=== PATIENT | female | born 1980 | race Native Hawaiian/Other Pacific Islander ===

== ENCOUNTER 2019-10-13 20:46 | Emergency (ER) | payer OTHER, SELFPAY ==
[2019-10-13 20:46] VITALS: BP 176/98; PULSE 79; RESP 16; TEMP 37; O2SAT 100; BMI 22.3
--- NOTE | 2019-10-13 20:59 | DI.RAD.S_ITS ---
PROCEDURE: XR CHEST 1V INDICATIONS: chest pain TECHNIQUE: One view of the chest was acquired. COMPARISON: None. FINDINGS: Surgical changes and devices: None. Lungs and pleura: Lungs are clear. Question lead over right chest versus right midlung field pulmonary nodule. No pleural effusions or pneumothorax. Mediastinum: Mediastinal contours appear normal. Heart size is normal. Bones and chest wall: No suspicious bony lesions. Overlying soft tissues appear unremarkable. IMPRESSION: 1. No acute pulmonary infiltrates. 2. Question lead over right chest versus right pulmonary nodule. Recommend repeat chest films after removal of possible lead Comment: Findings were discussed with Dr. Noonan at the time of study dictation. Dictated by: Julien Chirinos M.D. on 10/13/2019 at 22:03 Approved by: Julien Chirinos M.D. on 10/13/2019 at 22:06
[2019-10-13 21:23] VITALS: BP 154/83; PULSE 84; RESP 17; O2SAT 95
[2019-10-13 21:26] LABS: Prothrombin Time 11.6 SECONDS (10.1-12.7)
[2019-10-13 21:27] LABS: Add Manual Diff / Slide Review NO; Basophils Absolute Auto 100 /uL (0-100); Basophils Percent Auto 1.1 % (0-2); Eosinophils Absolute Auto 100 /uL (0-450); Eosinophils Percent Auto 2.1 % (2-4); Hemoglobin 11.6 g/dL (12.0-16.0); Lymphocytes Absolute Auto 2300 /uL (1100-4500); Lymphocytes Percent Auto 39.5 % (25-40); Mean Corpuscular HGB Conc 33.2 % (30-36); Mean Corpuscular Hemoglobin 29.7 PG (26-34); Mean Corpuscular Volume 89.6 fL (80-100); Monocytes Absolute Auto 500 /uL (0-900); Monocytes Percent Auto 8.5 % (3-14); Neutrophils Absolute Auto 2800 /uL (1500-7000); Neutrophils Percent Auto 48.8 % (50-75); Platelet Count 227 X10^3/uL (150-400); Red Blood Cell Count 3.91 X10^6/uL (4.0-5.2); Red Cell Distribution Width 13.6 % (11.6-14.8); White Blood Cell Count 5.8 X10^3/uL (4.5-11.0)
[2019-10-13 21:29] LABS: Alanine Aminotransferase 23 IU/L (<35); Albumin 4.6 g/dL (3.5-5.0); Albumin Globulin Ratio 1.2 (1.0-2.8); Alkaline Phosphatase 70 U/L (38-126); Aspartate Aminotransferase 19 IU/L (14-36); BUN Creatinine Ratio 21.4 (6-22); Bilirubin Total 0.3 mg/dL (0.2-1.3); Blood Urea Nitrogen 15 mg/dL (7-17); Calcium 9.5 mg/dL (8.4-10.2); Carbon Dioxide 28 mmol/L (22-32); Chloride 101 mmol/L (98-107); Creatine Kinase 69 U/L (30-135); Estimated Glomerular Filt Rate > 60.0 mL/min (>60); Globulin 3.8 g/dL (1.7-4.1); Glucose 98 mg/dL (70-100); HEMOLYSIS < 15 (0-50); Lipase 118 U/L (23-300); PTT Partial Thromboplastin Tim 33 SECONDS (26.4-36.2); Potassium 3.6 mmol/L (3.4-5.1); Sodium 138 mmol/L (137-145); Total Protein 8.4 g/dL (6.3-8.2)
[2019-10-13 21:40] LABS: Troponin I < 0.012 ng/mL (0.01-0.034)
--- NOTE | 2019-10-13 22:04 | ED.CHESTPAIN ---
HPI - Chest Pain General Chief Complaint: Chest Pain Stated Complaint: upper abd pain, back pain, headache Time Seen by Provider: 10/13/19 22:02 Source: patient Mode of arrival: Ambulatory Limitations: no limitations History of Present Illness HPI narrative: This is a 38-year-old female comes to the emergency department with complaint of neck pain into her lower jaw and throat, pain in her back particularly the left thoracic side, as well as epigastric pain. Patient states that her symptoms have been and off for at least a month except for the pain in her neck and when she swallows started last night. Her back is been bothering her for about 4 days. She states she has had some chills on and off. She has had some tingling in her hands and feet intermittently for the past month. Patient has had a little bit of sore throat. She has also had some epigastric pain. She denies any chest pain or pressure, nausea, no vomiting no issues with bowel movements or urination. She denies any swelling in her extremities. She does not recall any recent trauma or injury. She has also had mild headache. She did have a massage on Friday night which seemed to possibly cause her back discomfort. She is taking Tylenol which has been helpful. Patient takes omeprazole but not every single day, she has had x2. She gets hives with aspirin and ibuprofen to. No tobacco, no alcohol, no illicit. No cardiac, embolic or pulmonary history in her immediate family. Related Data Previous Rx's Medication Instructions Recorded omeprazole 40 mg PO DAILY #30 cap 10/14/19 Allergies Allergy/AdvReac Type Severity Reaction Status Date / Time aspirin Allergy Severe ITCHING Verified 10/13/19 20:58 ibuprofen Allergy Severe Hives Verified 10/13/19 20:58 Review of Systems Review of Systems ROS Unobtainable: All systems reviewed & are unremarkable except as noted in HPI and below Patient History Medical History (Updated 10/14/19 @ 00:35 by Aida Noonan DO) Delivery with history of (Acute) Ulcer (Acute) Social History Smoking Status: Never smoker Smoking Status: Never smoker Substance Use Type: does not use Exam Narrative Exam Narrative: GENERAL: Alert and oriented x three, thin, well-appearing female in mild distress HEENT: Head normocephalic, atraumatic, EOMI, pupils reactive, face symmetric, moist mucous membranes NECK: Supple, full range of motion CARDIOVASCULAR: Regular rate and rhythm without murmurs, rubs or gallops. Chest pain is not reproducible with palpation. RESPIRATORY: Breath sounds equal bilaterally, no wheezes rales or rhonchi. ABDOMEN: Soft, moderate epigastric and right upper quadrant tenderness. Normoactive bowel sounds all 4 quadrants. No guarding or rebound, rigidity, no mass, no HSM noted. Nondistended. : No CVA tenderness BACK: No cervical, thoracic or lumbar vertebral point tenderness. Patient has tissue tightness of the left mid and upper thoracic as well as left trapezius and latissimus dorsi muscle. Patient has normal range of motion. Patient's gait is normal. Muscle strength is 5/5 in upper extremities, 2+ radial pulses bilaterally with normal sensation bilaterally. EXTREMITIES: Normal range of motion, no clubbing or edema. Neurovascularly intact NEUROLOGICAL: Cranial nerves II through XII grossly intact. Moving all extremities SKIN: Warm, dry, no petechiae, no rashes or lesions. Initial Vital Signs Initial Vital Signs: Vital Signs Temperature 98.6 F 10/13/19 20:46 Pulse Rate 79 10/13/19 20:46 Respiratory Rate 16 10/13/19 20:46 Blood Pressure 176/98 H 10/13/19 20:46 Pulse Oximetry 100 10/13/19 20:46 Scores HEART Score Heart Score history: Slightly Suspicious Heart Score EKG: Normal Heart Score Age: < 45 years old Heart Score risk factors: No known risk factors Heart Score troponin: < or = to normal limit Heart Score Total: 0 PERC Score Age greater than or equal to 50 years: No Heart rate greater than or equal to 100 bpm: No Room Air O2 Sat less than 95%: No Unilateral leg swelling: No Recent trauma or surgery: No Hemoptysis: No Prior PE or DVT: No Hormone Use: No Total PERC Score: 0 Course Orders Ordered: ED Orders 10/13/19 20:58 EKG-12 Lead Stat 10/13/19 20:59 XR chest 1V Stat 10/13/19 21:10 Complete Blood Count AUTO DIFF Stat Comprehensive Metabolic Panel Stat Lipase Stat Partial Thromboplastin Time Stat Prothrombin Time INR Stat Troponin & CK Cardiac Panel Stat 10/13/19 22:57 US abdomen limited Stat 10/13/19 23:18 Troponin & CK Cardiac Panel Stat 10/13/19 23:20 EKG-12 Lead Routine Discontinued Medications Al Hydrox/Mg Hydrox/Simethicone 20 ml/ Lidocaine HCl 15 ml 0 ml PO NOW ONE Stop: 10/14/19 00:31 Last Admin: 10/14/19 00:35 Dose: 45 ml Documented by: FANNY Vital Signs Vital signs: Vital Signs - 8 hr 10/13/19 20:46 10/13/19 21:23 10/14/19 00:21 Temperature 98.6 F Pulse Rate 79 84 75 Respiratory Rate 16 17 18 Blood Pressure 176/98 H Blood Pressure [Left Arm] 154/83 H 124/93 H Pulse Oximetry 100 95 98 MDM - Chest Pain Lab Data Attestation: I reviewed the patient's lab results. Result diagrams: 10/13/19 21:10 10/13/19 21:10 Labs: Lab Results 10/13/19 10/13/19 10/13/19 Range/Units 21:10 21:10 21:10 WBC 5.8 (4.5-11.0) X10^3/uL RBC 3.91 L (4.0-5.2) X10^6/uL Hgb 11.6 L (12.0-16.0) g/dL Hct 35.0 L (36-46) % MCV 89.6 (80-100) fL MCH 29.7 (26-34) PG MCHC 33.2 (30-36) % RDW 13.6 (11.6-14.8) % Plt Count 227 (150-400) X10^3/uL Neut % (Auto) 48.8 L (50-75) % Lymph % (Auto) 39.5 (25-40) % [place] % (Auto) 8.5 (3-14) % Eos % (Auto) 2.1 (2-4) % Baso % (Auto) 1.1 (0-2) % Neut # (Auto) 2800 (6632-7038) /uL Lymph # (Auto) 2300 (1835-4960) /uL [place] # (Auto) 500 (0-900) /uL Eos # (Auto) 100 (0-450) /uL Baso # (Auto) 100 (0-100) /uL PT 11.6 (10.1-12.7) SECONDS INR 1.0 (0.9-1.3) APTT 33 (26.4-36.2) SECONDS Sodium 138 (137-145) mmol/L Potassium 3.6 (3.4-5.1) mmol/L Chloride 101 (98-107) mmol/L Carbon Dioxide 28 (22-32) mmol/L BUN 15 (7-17) mg/dL Creatinine 0.70 (0.52-1.04) mg/dL Estimated GFR > 60.0 (>60) mL/min BUN/Creatinine Ratio 21.4 (6-22) Glucose 98 (70-100) mg/dL Calcium 9.5 (8.4-10.2) mg/dL Total Bilirubin 0.3 (0.2-1.3) mg/dL AST 19 (14-36) IU/L ALT 23 (<35) IU/L Alkaline Phosphatase 70 (38-126) U/L Total Creatine Kinase 69 (30-135) U/L CK-MB (CK-2) TNP CK-MB (CK-2) Rel Index TNP Troponin I < 0.012 (0.01-0.034) ng/mL Total Protein 8.4 H (6.3-8.2) g/dL Albumin 4.6 (3.5-5.0) g/dL Globulin 3.8 (1.7-4.1) g/dL Albumin/Globulin Ratio 1.2 (1.0-2.8) Lipase 118 (23-300) U/L 10/13/19 Range/Units 23:18 WBC (4.5-11.0) X10^3/uL RBC (4.0-5.2) X10^6/uL Hgb (12.0-16.0) g/dL Hct (36-46) % MCV (80-100) fL MCH (26-34) PG MCHC (30-36) % RDW (11.6-14.8) % Plt Count (150-400) X10^3/uL Neut % (Auto) (50-75) % Lymph % (Auto) (25-40) % [place] % (Auto) (3-14) % Eos % (Auto) (2-4) % Baso % (Auto) (0-2) % Neut # (Auto) (3881-1459) /uL Lymph # (Auto) (3995-2092) /uL [place] # (Auto) (0-900) /uL Eos # (Auto) (0-450) /uL Baso # (Auto) (0-100) /uL PT (10.1-12.7) SECONDS INR (0.9-1.3) APTT (26.4-36.2) SECONDS Sodium (137-145) mmol/L Potassium (3.4-5.1) mmol/L Chloride (98-107) mmol/L Carbon Dioxide (22-32) mmol/L BUN (7-17) mg/dL Creatinine (0.52-1.04) mg/dL Estimated GFR (>60) mL/min BUN/Creatinine Ratio (6-22) Glucose (70-100) mg/dL Calcium (8.4-10.2) mg/dL Total Bilirubin (0.2-1.3) mg/dL AST (14-36) IU/L ALT (<35) IU/L Alkaline Phosphatase (38-126) U/L Total Creatine Kinase 64 (30-135) U/L CK-MB (CK-2) TNP CK-MB (CK-2) Rel Index TNP Troponin I < 0.012 (0.01-0.034) ng/mL Total Protein (6.3-8.2) g/dL Albumin (3.5-5.0) g/dL Globulin (1.7-4.1) g/dL Albumin/Globulin Ratio (1.0-2.8) Lipase (23-300) U/L Imaging Data Chest x-ray: Radiologist's Impression: [address] [id number] XRay Report Signed Patient: June Wright PMR#: [id number] : 1980Acct:[id number] Age/Sex: 38 / FDate of Service: 10/13/19 Loc: ED Accession Number: [id number] Procedure: XR chest 1V Ordering Provider: Aida Noonan D.O. PROCEDURE: XR CHEST 1V INDICATIONS: chest pain TECHNIQUE: One view of the chest was acquired. COMPARISON: None. FINDINGS: Surgical changes and devices: None. Lungs and pleura: Lungs are clear. Question lead over right chest versus right midlung field pulmonary nodule. No pleural effusions or pneumothorax. Mediastinum: Mediastinal contours appear normal. Heart size is normal. Bones and chest wall: No suspicious bony lesions. Overlying soft tissues appear unremarkable. IMPRESSION: 1. No acute pulmonary infiltrates. 2. Question lead over right chest versus right pulmonary nodule. Recommend repeat chest films after removal of possible lead Comment: Findings were discussed with Dr. Noonan at the time of study dictation. Dictated by: Julien Chirinos M.D. on 10/13/2019 at 22:03 Approved by: Julien Chirinos M.D. on 10/13/2019 at 22:06 RUQ US: Radiologist's Impression: Gallbladder remarkable without stones or wall thickening. No ductal dilation, common duct is 5.8 mm, liver margin is without focal abnormalities, pancreas is unremarkable. No significant abnormalities. ECG Data Attestation: I personally reviewed and interpreted this ECG as follows: Prior ECG tracings: not available for review Interpretation: Sinus rhythm, rate of 70, pr of 145, qrs of 81, qtc of 407. No ST elevation noted. No priors available for comparison. MDM Narrative Medical decision making narrative: Patient comes in with constellation of symptoms, patient is moderately tender in the epigastric region and RUQ. Labs show mild anemia, elevated white count, LFTs and abdominal enzymes are negative with normal electrolytes. Chest x-ray shows a possible nodule. On exam patient does not have a bleed in that place. Discussed with patient would recommend she have repeat imaging to evaluate for pulmonary nodule although I do not think this is likely the cause of her symptoms today. Right upper quadrant ultrasound does not show any major abnormalities. She does have a history of reflux and possibly ulcer she does not take her omeprazole daily and we discussed increasing this to daily. She does have a lot of muscle tightness on physical exam is suspect her back pain is more musculoskeletal in nature. Troponin, and EKG do not show acute changes. Heart score is low risk. Perc is 0. Discussed with patient she has a an appointment this morning at 9:40 a.m. and I asked that she keep it discussed with her physician. Discharge Plan Departure Patient Disposition: Home Clinical Impression: Atypical chest pain, Back pain, thoracic Discharge Date/Time: 01/30/20 00:48 Activity Restrictions/Additional Instructions: Follow up with primary care in the next week for recheck. You have mild anemia with a hemoglobin of 11. Your other labs do not show major changes. US does not show major changes. CXR shows a possible nodule on the right side, it's unclear if this may be a shadow and repeat chest xray imaging is recommended. Let your physician know and they can order this. Continue taking your omeprazole daily. You may take Tylenol up to 1000 mg every 8 hours as needed for pain. Return to the ER for fevers greater 100.4 F, passing out, lightheadedness, new chest pain, shortness of breath, persistent vomiting, black or bloody stools, new numbness, weakness or inability use your extremities, difficulty with finish saw operator or other new or concerning symptoms. Prescriptions: New omeprazole 40 mg capsule,delayed release(DR/EC) 40 mg PO DAILY Qty: 30 RF: 0
--- NOTE | 2019-10-13 22:57 | DI.US.S_ITS ---
PROCEDURE: US ABDOMEN LIMITED INDICATIONS: EPIGASTRIC PAIN TECHNIQUE: Real-time scanning was performed of the abdominal and retroperitoneal organs, with image documentation. COMPARISON: None. FINDINGS: Liver: Liver is normal in size and homogeneous in echotexture. Gallbladder: Gallbladder is normal in sonographic appearance without gallstones, gallbladder wall thickening, pericholecystic fluid, or abnormal sonographic Ang's. Biliary ducts: Intrahepatic bile ducts are non-dilated. Extrahepatic bile duct caliber measures 6 mm. Normal is 6-7 mm or less in diameter, or 10 mm or less post-cholecystectomy. Pancreas: Visualized portions of the pancreas are sonographically normal. Miscellaneous: No free abdominal fluid. IMPRESSION: Normal sonographic evaluation of the liver, gallbladder, biliary ducts, and pancreas. No significant discrepancy with the housing case manager radiology preliminary report. Dictated by: Alejandro Tipton M.D. on 10/14/2019 at 7:44 Approved by: Alejandro Tipton M.D. on 10/14/2019 at 7:46
[2019-10-13 23:40] LABS: Creatine Kinase 64 U/L (30-135)
[2019-10-13 23:53] LABS: Troponin I < 0.012 ng/mL (0.01-0.034)
[2019-10-14 00:21] VITALS: BP 124/93; PULSE 75; RESP 18; O2SAT 98
[2019-10-14] MEDS: MAG HYDROX/ALUMINUM/SIMETH SUS 20 ML, LIDOCAINE VISCOUS 2% 15 ML PO (00:35)
== END 2019-10-14 00:48 | disposition home or self-care (01) ==
PROVIDERS: Emergency Provider Emergency Medicine
DX: R07.89 Other chest pain (principal); M54.6 Pain in thoracic spine; R10.13 Epigastric pain
CPT/HCPCS: 36415; 71045; 76705; 80053; 82550; 83690; 84484; 85025; 85610; 85730; 93005; 99285

== ENCOUNTER 2020-12-11 02:46 | Emergency (ER) | payer OTHER, SELFPAY ==
[2020-12-11 02:57] VITALS: BP 153/93; PULSE 77; RESP 18; TEMP 36.4; O2SAT 98; BMI 22.6
--- NOTE | 2020-12-11 02:57 | DI.US.S_ITS ---
PROCEDURE: US ABDOMEN LIMITED INDICATIONS: EPIGASTRIC PAIN TECHNIQUE: Real-time focused scanning was performed of the abdomen, with image documentation. COMPARISON: None. FINDINGS: Liver is normal in size and echotexture. Gallbladder is sonographically normal. No gallstones. No gallbladder wall thickening with wall measuring 1.0 millimeters. No pericholecystic fluid. No sonographic Ang sign. Biliary tree is nondilated. Common bile duct measures 4.8 millimeters. IMPRESSION: No sonographic evidence of cholelithiasis or cholecystitis. If there is continued clinical concern for cholecystitis, a nuclear medicine HIDA scan should be considered for further evaluation. Dictated by: Estelle Rubio MD, PhD on 12/11/2020 at 8:16 Approved by: Estelle Rubio MD, PhD on 12/11/2020 at 8:17
--- NOTE | 2020-12-11 03:00 | ED.ABDPAIN ---
HPI - Abdominal Pain General Chief Complaint: Abdominal Pain Stated Complaint: feels gall bladder pain around to back Time Seen by Provider: 12/11/20 02:48 Source: patient Mode of arrival: Ambulatory Limitations: no limitations History of Present Illness HPI narrative: 40-year-old female nonsmoker with history of episodes of epigastric pain presents with a family member in the chief complaint of a severe epigastric pain with radiation to her back that started yesterday afternoon after eating fatty foods. She admits to nausea but denies any vomiting. She states her pain is worse with motion and palpation but denies any other obvious provocation or palliation. She states it is stabbing me and sharp in nature and 7/10 in intensity. She has had no fever chills nor change in bowel habits or jaundice. She denies any known history of gallbladder disease and does not drink alcohol. MD complaint: abdominal pain Onset (ago): hour(s) Pain Consistency: constant Location: epigastric Severity: severe Severity scale (1-10): 7 Quality: cramping, stabbing and sharp Radiation: back Relieving factors: rest Exacerbating factors: eating and movement Associated symptoms: nausea Related Data Previous Rx's Medication Instructions Recorded omeprazole 40 mg PO DAILY #30 cap 10/14/19 ondansetron 4 mg PO TID-QID PRN #10 tab 12/11/20 pantoprazole [Protonix] 40 mg PO DAILY #30 tab 12/11/20 Allergies Allergy/AdvReac Type Severity Reaction Status Date / Time aspirin Allergy Severe ITCHING Verified 10/13/19 20:58 ibuprofen Allergy Severe Hives Verified 10/13/19 20:58 Review of Systems Constitutional Constitutional: Denies chills, Denies fatigue, Denies fever(s), Denies frequent falls, Denies lethargy and Denies weakness Eyes Eyes: Denies change in vision, Denies eye discharge, Denies irritation and Denies loss of vision ENT Ears, Nose, Mouth, and Throat: Denies change in voice, Denies dizziness, Denies neck pain, Denies sore throat and Denies throat swelling Cardiovascular Cardiovascular: Denies chest pain, Denies irregular heart rhythm, Denies lightheadedness, Denies palpitations, Denies dyspnea, Denies dyspnea on exertion and Denies orthopnea Respiratory Respiratory: Denies cough, Denies dyspnea, Denies dyspnea on exertion and Denies wheezing Gastrointestinal Gastrointestinal: Reports abdominal pain, Denies change in bowel habits, Denies diarrhea, Reports nausea and Denies vomiting Musculoskeletal Musculoskeletal: Denies neck pain and Denies numbness Integumentary/Breasts Skin/Breast: Denies pruritus, Denies erythema, Denies rash and Denies wounds Neurologic Neurologic: Denies behavioral changes, Denies confusion, Denies dizziness, Denies frequent falls, Denies loss of vision, Denies numbness and Denies weakness Psychiatric Psychiatric: Denies anxiety, Denies behavioral changes, Denies confusion, Denies depression, Denies homicidal ideation and Denies suicidal ideation Endocrine Endocrine: Denies fatigue, Denies flushing and Denies palpitations Hematologic/Lymphatic Hematologic/Lymphatic: Denies easy bruising Allergic/Immunologic Allergic/Immunologic: Denies urticaria, Denies throat swelling and Denies wheezing Patient History Medical History Delivery with history of Ulcer Social History Smoking Status: Never smoker Smoking Status: Never smoker alcohol intake frequency: 0-2 drinks per day Substance Use Type: does not use Exam Narrative Exam Narrative: GENERAL: [40] year old patient appears stated age. Well-nourished, well-developed patient, in mild distress. HEAD: Atraumatic. Normocephalic. EYES: Pupils equal round and reactive. Extraocular motions intact. No scleral icterus. No injection or drainage. ENT: Nose without bleeding, purulent drainage. Throat without erythema, tonsillar hypertrophy or exudate. Airway patent. NECK: Trachea midline. Non tender CARDIOVASCULAR: Regular rate and rhythm without murmurs, gallops, or rubs. RESPIRATORY: Clear to auscultation. Breath sounds equal bilaterally. No wheezes, rales, or rhonchi. GASTROINTESTINAL: Abdomen soft, epigastric tenderness, nondistended. Bowel sounds present in all 4 quadrants EXTREMITIES: No edema or joint tenderness. BACK: Nontender without deformity or crepitance. No flank tenderness. NEURO: AOx3. SKIN: No rash or erythema of visible areas Initial Vital Signs Initial Vital Signs: Vital Signs Temperature 97.6 F 12/11/20 02:57 Pulse Rate 77 12/11/20 02:57 Respiratory Rate 18 12/11/20 02:57 Blood Pressure 153/93 H 12/11/20 02:57 Pulse Oximetry 98 12/11/20 02:57 Course Orders Ordered: ED Orders 12/11/20 02:57 US abdomen limited Stat 12/11/20 03:10 Complete Blood Count AUTO DIFF Stat Comprehensive Metabolic Panel Stat Lipase Stat Discontinued Medications Hydrocodone Bitart/Acetaminophen (Hydrocodone/Acet 5/325 Prepack) 1 bottle MISC SEEINSTR ONE Stop: 12/11/20 03:58 Last Admin: 12/11/20 04:06 Dose: 1 bottle Documented by: Al Hydrox/Mg Hydrox/Simethicone 20 ml/ Lidocaine HCl 15 ml 0 ml PO NOW ONE Stop: 12/11/20 03:58 Last Admin: 12/11/20 04:06 Dose: 35 ml Documented by: Sodium Chloride (Normal Saline 0.9%) 1,000 mls @ 1,000 mls/hr IV BOLUS ONE Stop: 12/11/20 03:55 Last Infusion: 12/11/20 04:21 Dose: Infused Documented by: Ondansetron HCl (Ondansetron 4 Mg Odt Prepack) 1 bottle MISC SEEINSTR ONE Stop: 12/11/20 03:58 Last Admin: 12/11/20 04:06 Dose: 1 bottle Documented by: Pantoprazole Sodium (Pantoprazole 40 Mg Vial) 40 mg IV NOW ONE Stop: 12/11/20 02:57 Last Admin: 12/11/20 03:04 Dose: 40 mg Documented by: Vital Signs Vital signs: Vital Signs - 8 hr 12/11/20 02:57 12/11/20 04:18 Temperature 97.6 F 96.8 F L Pulse Rate 77 70 Respiratory Rate 18 16 Blood Pressure 153/93 H 146/92 H Pulse Oximetry 98 99 MDM - Abdominal Pain Lab Data Result diagrams: 12/11/20 03:10 12/11/20 03:10 Labs: Lab Results 12/11/20 12/11/20 Range/Units 03:10 03:10 WBC 6.6 (4.5-11.0) X10^3/uL RBC 4.29 (4.0-5.2) X10^6/uL Hgb 12.3 (12.0-16.0) g/dL Hct 38.1 (36-46) % MCV 88.7 (80-100) fL MCH 28.7 (26-34) PG MCHC 32.3 (30-36) % RDW 14.2 (11.6-14.8) % Plt Count 234 (150-400) X10^3/uL Neut % (Auto) 45.3 L (50-75) % Lymph % (Auto) 38.9 (25-40) % [place] % (Auto) 8.9 (3-14) % Eos % (Auto) 5.7 H (2-4) % Baso % (Auto) 1.2 (0-2) % Neut # (Auto) 3000 (6351-2994) /uL Lymph # (Auto) 2600 (3268-6055) /uL [place] # (Auto) 600 (0-900) /uL Eos # (Auto) 400 (0-450) /uL Baso # (Auto) 100 (0-100) /uL Sodium 140 (137-145) mmol/L Potassium 3.7 (3.4-5.1) mmol/L Chloride 106 (98-107) mmol/L Carbon Dioxide 24 (22-32) mmol/L BUN 12 (7-17) mg/dL Creatinine 0.65 (0.52-1.04) mg/dL Estimated GFR > 60.0 (>60) mL/min BUN/Creatinine Ratio 18.5 (6-22) Glucose 103 H (70-100) mg/dL Calcium 10.5 H (8.4-10.2) mg/dL Total Bilirubin 0.4 (0.2-1.3) mg/dL AST 18 (14-36) IU/L ALT 23 (<35) IU/L Alkaline Phosphatase 78 (38-126) U/L Total Protein 8.6 H (6.3-8.2) g/dL Albumin 4.7 (3.5-5.0) g/dL Globulin 3.9 (1.7-4.1) g/dL Albumin/Globulin Ratio 1.2 (1.0-2.8) Lipase 139 (23-300) U/L Point of care testing: Point of Care Testing Test Results Negative Urine Dip Bedside Urine Glucose Negative Bedside Urine Bilirubin - Negative Bedside Urine Ketone - Negative Urine Specific [place] 1.010 Bedside Urine Occult Blood - Negative Bedside Urine pH 6.5 Bedside Urine Protein - Negative Bedside Urine Urobilinogen - Negative Bedside Urine Nitrite - Negative Bedside Urine Leukocytes - Negative Esterase Imaging Data US - OB: Radiologist's Impression: No explanation of RUQ pain MDM Narrative Medical decision making narrative: Multiple etiologies for patient's symptoms considered including: [Gallbladder pain versus pancreatitis versus bowel obstruction versus other] Patient's symptoms improved over duration of stay with above-stated therapies. Findings and discharge diagnosis discussed with patient/family followed by verbalization of understanding Return precautions discussed with patient/family whom verbalize understanding. Discharge Plan Departure Patient Disposition: Home Clinical Impression: Acute epigastric pain Instructions: DI for Epigastric Pain Activity Restrictions/Additional Instructions: *You have been diagnosed with [acute epigastric pain with very reassuring blood work and ultrasound. No evidence of pancreatitis, liver disease or gallbladder disease] *What to do: *Take medications as directed *Follow up with your primary care provider in 2-3 days, call for an appointment. Let them know you were seen in the Emergency Department and that we ask that you be seen in follow up *Please consider a clear liquid diet for the next 24-48 hours and then beyond that please avoid fatty foods, alcohol, significant caffeine, spicy foods as these may trigger your symptoms *Return to ER if you should have any new, worsening or concerning symptoms, such as [increasing pain, fever greater than 101 F, yellowing of your skin or other bothersome symptoms] Prescriptions: New pantoprazole [Protonix] 40 mg tablet,delayed release (DR/EC) 40 mg PO DAILY Qty: 30 RF: 0 ondansetron 4 mg tablet,disintegrating 4 mg PO TID-QID PRN (Reason: nausea and vomiting) Qty: 10 RF: 0 No Action omeprazole 40 mg capsule,delayed release(DR/EC) 40 mg PO DAILY Qty: 30 RF: 0 Referrals: [facility] [Outside]
[2020-12-11] MEDS: PANTOPRAZOLE 40 MG VIAL IV (03:04)
[2020-12-11] MEDS: SODIUM CHLORIDE 0.9% 1,000 ML 1000 ML IV (03:04)
[2020-12-11 03:30] LABS: Add Manual Diff / Slide Review NO; Basophils Absolute Auto 100 /uL (0-100); Basophils Percent Auto 1.2 % (0-2); Eosinophils Absolute Auto 400 /uL (0-450); Eosinophils Percent Auto 5.7 % (2-4); Hematocrit 38.1 % (36-46); Hemoglobin 12.3 g/dL (12.0-16.0); Lymphocytes Absolute Auto 2600 /uL (1100-4500); Lymphocytes Percent Auto 38.9 % (25-40); Mean Corpuscular HGB Conc 32.3 % (30-36); Mean Corpuscular Hemoglobin 28.7 PG (26-34); Mean Corpuscular Volume 88.7 fL (80-100); Monocytes Absolute Auto 600 /uL (0-900); Monocytes Percent Auto 8.9 % (3-14); Neutrophils Absolute Auto 3000 /uL (1500-7000); Neutrophils Percent Auto 45.3 % (50-75); Platelet Count 234 X10^3/uL (150-400); Red Blood Cell Count 4.29 X10^6/uL (4.0-5.2); Red Cell Distribution Width 14.2 % (11.6-14.8); White Blood Cell Count 6.6 X10^3/uL (4.5-11.0)
[2020-12-11 03:33] LABS: Alanine Aminotransferase 23 IU/L (<35); Albumin 4.7 g/dL (3.5-5.0); Albumin Globulin Ratio 1.2 (1.0-2.8); Alkaline Phosphatase 78 U/L (38-126); Aspartate Aminotransferase 18 IU/L (14-36); BUN Creatinine Ratio 18.5 (6-22); Bilirubin Total 0.4 mg/dL (0.2-1.3); Blood Urea Nitrogen 12 mg/dL (7-17); Calcium 10.5 mg/dL (8.4-10.2); Carbon Dioxide 24 mmol/L (22-32); Chloride 106 mmol/L (98-107); Estimated Glomerular Filt Rate > 60.0 mL/min (>60); Globulin 3.9 g/dL (1.7-4.1); Glucose 103 mg/dL (70-100); HEMOLYSIS < 15 (0-50); Lipase 139 U/L (23-300); Potassium 3.7 mmol/L (3.4-5.1); Sodium 140 mmol/L (137-145); Total Protein 8.6 g/dL (6.3-8.2)
[2020-12-11] MEDS: MAG HYDROX/ALUMINUM/SIMETH SUS 20 ML, LIDOCAINE VISCOUS 2% 15 ML PO (04:06)
[2020-12-11] MEDS: HYDROCODONE/ACET 5/325 PREPACK 1 BOTTLE MISC (04:06)
[2020-12-11] MEDS: ONDANSETRON 4 MG ODT PREPACK 1 BOTTLE MISC (04:06)
[2020-12-11 04:18] VITALS: BP 146/92; PULSE 70; RESP 16; TEMP 36; O2SAT 99
== END 2020-12-11 04:20 | disposition home or self-care (01) ==
PROVIDERS: Emergency Provider Emergency Medicine
DX: R10.13 Epigastric pain (principal)
CPT/HCPCS: 36415; 76705; 80053; 81003; 81025; 83690; 85025; 96361; 96374; 99284; C9113

== ENCOUNTER 2020-12-25 01:39 | Emergency (ER) | payer OTHER, SELFPAY ==
--- NOTE | 2020-12-25 01:44 | ED_ITS ---
HPI - General Adult General Chief complaint: Chest Pain Stated complaint: abdominal pain, chest pain Time Seen by Provider: 12/25/20 01:40 Source: patient Mode of arrival: Ambulatory Limitations: no limitations History of Present Illness HPI narrative: Patient is a 40-year-old female who is here for evaluation of ep igastric abdominal pain and also left-sided chest pain. She also describes left arm pain left leg pain and also headache and some nausea. She states she has had abdominal pain in the past. She was seen here in this emergency department approximately 1 month ago for abdominal discomfort. She had labs and a right upper quadrant ultrasound other unremarkable. She has talk with her primary doctor. She is going to go see a GI provider in approximately 1 month as a consultation to discuss an endoscopy. She states that her abdominal discomfort started approximately 12 hours ago. Has been off and on since then. She states this time she is now having some left-sided chest discomfort as well. Is hard for her to describe exactly how the chest discomfort is feeling. It is somewhat worse with palpation and movement. Is also worse with taking a deep breath. She does state that she was having quite a bit of stress at the time of the onset of the symptoms. She did eat dinner this evening and that did not change her discomfort at all. Related Data Previous Rx's Medication Instructions Recorded omeprazole 40 mg PO DAILY #30 cap 10/14/19 ondansetron 4 mg PO TID-QID PRN #10 tab 12/11/20 pantoprazole [Protonix] 40 mg PO DAILY #30 tab 12/11/20 Allergies Allergy/AdvReac Type Severity Reaction Status Date / Time aspirin Allergy Severe ITCHING Verified 12/25/20 01:56 ibuprofen Allergy Severe Hives Verified 12/25/20 01:56 Review of Systems Constitutional Constitutional: Denies fatigue, Denies fever(s) and Reports headache(s) Eyes Eyes: Denies change in vision ENT Ears, Nose, Mouth, and Throat: Reports headache(s) and Denies sore throat Cardiovascular Cardiovascular: Reports chest pain, Denies rapid heart rate and Denies dyspnea Respiratory Respiratory: Denies cough, Reports pain on inspiration and Denies dyspnea Gastrointestinal Gastrointestinal: Reports abdominal pain, Denies change in bowel habits, Reports nausea and Denies vomiting Genitourinary Genitourinary: Denies dysuria Genitourinary: Denies dysuria Musculoskeletal Musculoskeletal: Denies arthralgias, Reports back pain, Denies myalgias and Denies numbness Integumentary/Breasts Skin/Breast: Denies rash Neurologic Neurologic: Denies behavioral changes, Reports headache(s) and Denies numbness Psychiatric Psychiatric: Reports anxiety and Denies behavioral changes Endocrine Endocrine: Denies fatigue Hematologic/Lymphatic On Anticoagulants: No Allergic/Immunologic Allergic/Immunologic: Denies urticaria Patient History Medical History Delivery with history of Ulcer Social History Smoking Status: Never smoker Smoking Status: Never smoker alcohol intake frequency: 0-2 drinks per day Substance Use Type: does not use Exam Initial Vital Signs Initial Vital Signs: Vital Signs Temperature 98.3 F 12/25/20 01:57 Pulse Rate 86 12/25/20 01:57 Respiratory Rate 16 12/25/20 01:57 Blood Pressure 149/80 H 12/25/20 01:57 Pulse Oximetry 100 12/25/20 01:57 Const General: cooperative, healthy appearing, comfortable and well developed Limitations: mental status not altered HENSD Head: normal to inspection and normocephalic Eyes General: appearance normal, both eyes and all related structures Chest Chest: tenderness Resp Effort & Inspection: normal respiratory effort Auscultation: clear to auscultation bilaterally Cardio Rate: regular rate Rhythm: regular rhythm GI Inspection: non-distended Palpation: soft and tender (Epigastric region) Back/Spine/Pelvis Cervical Spine: No cervical muscular tenderness Thoracic/Lumbar Spine: paraspinal tenderness and No thoracic spinal tenderness Skin Lesions: no lesions Rashes: no rashes Neuro General: patient alert, patient awake and patient oriented x3 Cognition: normal cognition Speech: speech normal Extrem General: normal to inspection and capillary refill normal Psych Appearance: grossly normal and well kempt Scores GCS [place] coma scale eye opening: Spontaneous [place] coma scale verbal response: Orientated [place] coma scale motor response: Obey commands [place] coma scale total score: 15 HEART Score Heart Score history: Slightly Suspicious Heart Score EKG: Non-Specific repolarization disturbance Heart Score Age: < 45 years old Heart Score risk factors: No known risk factors Heart Score troponin: < or = to normal limit Heart Score Total: 1 PERC Score Age greater than or equal to 50 years: No Heart rate greater than or equal to 100 bpm: No Room Air O2 Sat less than 95%: No Unilateral leg swelling: No Recent trauma or surgery: No Hemoptysis: No Prior PE or DVT: No Hormone Use: No Total PERC Score: 0 Course Orders Ordered: ED Orders 12/25/20 01:43 EKG-12 Lead Stat 12/25/20 01:50 Complete Blood Count AUTO DIFF Stat Comprehensive Metabolic Panel Stat Lipase Stat Troponin & CK Cardiac Panel Stat 12/25/20 02:08 XR chest 1V Stat D Dimer Stat Discontinued Medications Al Hydrox/Mg Hydrox/Simethicone 20 ml/ Lidocaine HCl 15 ml 0 ml PO NOW ONE Stop: 12/25/20 02:08 Last Admin: 12/25/20 02:15 Dose: 35 ml Documented by: Pantoprazole Sodium (Pantoprazole 40 Mg Vial) 40 mg IV NOW ONE Stop: 12/25/20 02:08 Last Admin: 12/25/20 02:15 Dose: 40 mg Documented by: Vital Signs Vital signs: Vital Signs - 8 hr 12/25/20 01:57 12/25/20 02:02 12/25/20 02:10 Temperature 98.3 F Pulse Rate 86 85 71 Respiratory Rate 16 25 H 16 Blood Pressure 149/80 H Pulse Oximetry 100 90 L 100 12/25/20 02:20 12/25/20 02:30 Temperature Pulse Rate 71 75 Respiratory Rate 15 18 Blood Pressure 132/75 131/81 Pulse Oximetry 100 99 Medical Decision Making Lab Data Lab results reviewed: Yes I reviewed the patient's lab results. Result diagrams: 12/25/20 01:50 12/25/20 01:50 Labs: Lab Results 12/25/20 12/25/20 12/25/20 Range/Units 01:50 01:50 01:50 WBC 7.0 (4.5-11.0) X10^3/uL RBC 4.05 (4.0-5.2) X10^6/uL Hgb 11.7 L (12.0-16.0) g/dL Hct 35.7 L (36-46) % MCV 88.3 (80-100) fL MCH 28.8 (26-34) PG MCHC 32.6 (30-36) % RDW 13.7 (11.6-14.8) % Plt Count 249 (150-400) X10^3/uL Neut % (Auto) 43.5 L (50-75) % Lymph % (Auto) 40.0 (25-40) % Maries % (Auto) 7.8 (3-14) % Eos % (Auto) 7.4 H (2-4) % Baso % (Auto) 1.3 (0-2) % Neut # (Auto) 3100 (2752-1213) /uL Lymph # (Auto) 2800 (3555-9838) /uL Maries # (Auto) 500 (0-900) /uL Eos # (Auto) 500 H (0-450) /uL Baso # (Auto) 100 (0-100) /uL D-Dimer 239 H (<230) ng/mL Sodium 139 (137-145) mmol/L Potassium 3.6 (3.4-5.1) mmol/L Chloride 107 (98-107) mmol/L Carbon Dioxide 23 (22-32) mmol/L BUN 12 (7-17) mg/dL Creatinine 0.63 (0.52-1.04) mg/dL Estimated GFR > 60.0 (>60) mL/min BUN/Creatinine Ratio 19.0 (6-22) Glucose 104 H (70-100) mg/dL Calcium 9.5 (8.4-10.2) mg/dL Total Bilirubin 0.3 (0.2-1.3) mg/dL AST 20 (14-36) IU/L ALT 25 (<35) IU/L Alkaline Phosphatase 79 (38-126) U/L Total Creatine Kinase 75 (30-135) U/L CK-MB (CK-2) TNP CK-MB (CK-2) Rel Index TNP Troponin I < 0.012 (0.01-0.034) ng/mL Total Protein 8.5 H (6.3-8.2) g/dL Albumin 4.7 (3.5-5.0) g/dL Globulin 3.8 (1.7-4.1) g/dL Albumin/Globulin Ratio 1.2 (1.0-2.8) Lipase 133 (23-300) U/L Point of Care Testing Test Results Negative Urine Dip Bedside Urine Glucose Negative Bedside Urine Bilirubin - Negative Bedside Urine Ketone - Negative Urine Specific [place] 1.010 Bedside Urine Occult Blood - Negative Bedside Urine pH 6.0 Bedside Urine Protein - Negative Bedside Urine Urobilinogen - Negative Bedside Urine Nitrite - Negative Bedside Urine Leukocytes - Negative Esterase Point of care testing: Point of Care Testing Test Results Negative Urine Dip Bedside Urine Glucose Negative Bedside Urine Bilirubin - Negative Bedside Urine Ketone - Negative Urine Specific [place] 1.010 Bedside Urine Occult Blood - Negative Bedside Urine pH 6.0 Bedside Urine Protein - Negative Bedside Urine Urobilinogen - Negative Bedside Urine Nitrite - Negative Bedside Urine Leukocytes - Negative Esterase Imaging Data Chest x-ray: Radiologist's Impression: No acute cardiopulmonary disease ECG Data Attestation: I personally reviewed and interpreted this ECG as follows: Prior ECG tracings: not available for review Interpretation: Sinus rhythm Ventricular rate of 73 Normal axis Normal QRS Normal QTC No ST T wave changes MDM Narrative Medical decision making narrative: Patient did feel better after the GI medicine she received here in the ER. Her discomfort was reproducible with palpation of her epigastrium. She has had epigastric issues in the past. Her chest x-ray is unremarkable. EKG shows nonspecific changes. She has a low risk heart score. Has a negative troponin. She did have a set of vital signs that show that she was tachypneic to 25 and an oxygen saturation of 90% however upon further discussion with the nurses they stated that this was inaccurate. The respiratory rate was not correct and there was not a good tracing on the waveform when the 90% was recorded. She has had no true recordings of tachypnea or hypoxia. I do have low suspicion that this is a pulmonary embolism. Perc score was negative. The D-dimer was ordered prior to clarification of her vital signs and I do have low suspicion that this is a pulmonary embolism not feel that we should hold on a CT a for now. I suspect this is GI related and also suspect that there is a stress/anxiety component to it as well. He we can hold on further workup for now. She has follow-up with GI are deep planned. Discussed with her that she should talk with her primary provider about having a stress test performed. She was given return precautions and follow-up instructions she expressed understanding and agreement. Discharge Plan Departure Patient Disposition: Home Clinical Impression: Atypical chest pain, Acute epigastric pain Instructions: DI for Abdominal Pain-Adult, DI for Atypical Chest Pain Activity Restrictions/Additional Instructions: You continue medications as directed. I recommend that when your doctor's office opens later today that you discuss with him/her the indications for referral to have a stress test performed. This will further evaluate your heart. Also recommend that you keep your appointment with the GI doctors that you already have scheduled next month. Return to the emergency department for any new or worsening symptoms Prescriptions: No Action pantoprazole [Protonix] 40 mg tablet,delayed release (DR/EC) 40 mg PO DAILY Qty: 30 RF: 0 ondansetron 4 mg tablet,disintegrating 4 mg PO TID-QID PRN (Reason: nausea and vomiting) Qty: 10 RF: 0 omeprazole 40 mg capsule,delayed release(DR/EC) 40 mg PO DAILY Qty: 30 RF: 0
[2020-12-25 01:57] VITALS: BP 149/80; PULSE 86; RESP 16; TEMP 36.8; O2SAT 100; BMI 22.6
[2020-12-25 02:02] VITALS: PULSE 85; RESP 25; O2SAT 90
--- NOTE | 2020-12-25 02:08 | DI.RAD.S_ITS ---
PROCEDURE: XR CHEST 1V INDICATIONS: chest pain TECHNIQUE: One view of the chest was acquired. COMPARISON: [facility], CR, XR CHEST 1V, 10/13/2019, 21:46. FINDINGS: Surgical changes and devices: None. Lungs and pleura: Lungs are clear. No pleural effusions or pneumothorax. Mediastinum: Mediastinal contours appear normal. Heart size is normal. Bones and chest wall: No suspicious bony lesions. Overlying soft tissues appear unremarkable. IMPRESSION: No acute cardiopulmonary disease process. Dictated by: Estelle Rubio MD, PhD on 12/25/2020 at 8:28 Approved by: Estelle Rubio MD, PhD on 12/25/2020 at 8:32
[2020-12-25 02:10] VITALS: PULSE 71; RESP 16; O2SAT 100
[2020-12-25 02:12] LABS: Add Manual Diff / Slide Review NO; Basophils Absolute Auto 100 /uL (0-100); Basophils Percent Auto 1.3 % (0-2); Eosinophils Absolute Auto 500 /uL (0-450); Eosinophils Percent Auto 7.4 % (2-4); Hematocrit 35.7 % (36-46); Hemoglobin 11.7 g/dL (12.0-16.0); Lymphocytes Absolute Auto 2800 /uL (1100-4500); Mean Corpuscular HGB Conc 32.6 % (30-36); Mean Corpuscular Hemoglobin 28.8 PG (26-34); Mean Corpuscular Volume 88.3 fL (80-100); Monocytes Absolute Auto 500 /uL (0-900); Monocytes Percent Auto 7.8 % (3-14); Neutrophils Absolute Auto 3100 /uL (1500-7000); Neutrophils Percent Auto 43.5 % (50-75); Platelet Count 249 X10^3/uL (150-400); Red Blood Cell Count 4.05 X10^6/uL (4.0-5.2); Red Cell Distribution Width 13.7 % (11.6-14.8)
[2020-12-25 02:15] LABS: Alanine Aminotransferase 25 IU/L (<35); Albumin 4.7 g/dL (3.5-5.0); Albumin Globulin Ratio 1.2 (1.0-2.8); Alkaline Phosphatase 79 U/L (38-126); Aspartate Aminotransferase 20 IU/L (14-36); Bilirubin Total 0.3 mg/dL (0.2-1.3); Blood Urea Nitrogen 12 mg/dL (7-17); Calcium 9.5 mg/dL (8.4-10.2); Carbon Dioxide 23 mmol/L (22-32); Chloride 107 mmol/L (98-107); Creatine Kinase 75 U/L (30-135); Estimated Glomerular Filt Rate > 60.0 mL/min (>60); Globulin 3.8 g/dL (1.7-4.1); Glucose 104 mg/dL (70-100); HEMOLYSIS < 15 (0-50); Lipase 133 U/L (23-300); Potassium 3.6 mmol/L (3.4-5.1); Sodium 139 mmol/L (137-145); Total Protein 8.5 g/dL (6.3-8.2)
[2020-12-25] MEDS: MAG HYDROX/ALUMINUM/SIMETH SUS 20 ML, LIDOCAINE VISCOUS 2% 15 ML PO (02:15)
[2020-12-25] MEDS: PANTOPRAZOLE 40 MG VIAL IV (02:15)
[2020-12-25 02:20] VITALS: BP 132/75; PULSE 71; RESP 15; O2SAT 100
[2020-12-25 02:27] LABS: Troponin I < 0.012 ng/mL (0.01-0.034)
[2020-12-25 02:30] VITALS: BP 131/81; PULSE 75; RESP 18; O2SAT 99
[2020-12-25 02:38] LABS: D Dimer 239 ng/mL (<230)
[2020-12-25 02:57] VITALS: TEMP 36.7
== END 2020-12-25 03:00 | disposition home or self-care (01) ==
PROVIDERS: Emergency Provider Emergency Medicine
DX: R07.89 Other chest pain (principal); R10.13 Epigastric pain; R51.9 Headache, unspecified; R11.0 Nausea
CPT/HCPCS: 36415; 71045; 80053; 81003; 81025; 82550; 83690; 84484; 85025; 85379; 93005; 93010; 96374; 99284; C9113

== ENCOUNTER 2021-04-17 23:13 | Emergency (ER) | payer OTHER, SELFPAY ==
[2021-04-17 23:19] VITALS: BP 155/89; PULSE 79; RESP 16; TEMP 36.9; O2SAT 100
--- NOTE | 2021-04-17 23:39 | ED.GENADULT ---
HPI - General Adult General Chief complaint: Abdominal Pain Stated complaint: burning feeling down throat to stomach Time Seen by Provider: 04/17/21 23:32 Source: patient Mode of arrival: Ambulatory History of Present Illness HPI narrative: Patient is a 40-year-old female who does have a history of reflux disease. She has been on omeprazole and pantoprazole in the past. She is not currently taking any medications because she states that these medicines have made her nauseous. She has had discomfort of feeling like burning down her throat and in her epigastric region off and on for the past several weeks/months. She has not tried anything for the symptoms prior to arrival. Related Data Previous Rx's Medication Instructions Recorded omeprazole 40 mg capsule,delayed 40 mg PO DAILY #30 cap 10/14/19 release ondansetron 4 mg disintegrating 4 mg PO TID-QID PRN #10 tab 12/11/20 tablet pantoprazole 40 mg tablet,delayed 40 mg PO DAILY #30 tab 12/11/20 release (Protonix) sucralfate 1 gram tablet (Carafate) 1 g PO QACHS #60 tab 04/18/21 sucralfate 1 gram tablet (Carafate) 1 g PO QACHS #60 tab 04/18/21 Allergies Allergy/AdvReac Type Severity Reaction Status Date / Time aspirin Allergy Severe ITCHING Verified 12/25/20 01:56 ibuprofen Allergy Severe Hives Verified 12/25/20 01:56 Review of Systems Constitutional Constitutional: Reports system reviewed and no additional complaints, except as documented ENT Ears, Nose, Mouth, and Throat: Reports system reviewed and no additional complaints, except as documented Cardiovascular Cardiovascular: Reports as per HPI Respiratory Respiratory: Reports system reviewed and no additional complaints, except as documented Gastrointestinal Gastrointestinal: Reports as per HPI Musculoskeletal Musculoskeletal: Reports system reviewed and no additional complaints, except as documented Integumentary/Breasts Skin/Breast: Reports system reviewed and no additional complaints, except as documented Neurologic Neurologic: Reports system reviewed and no additional complaints, except as documented Hematologic/Lymphatic On Anticoagulants: No Allergic/Immunologic Allergic/Immunologic: Reports system reviewed and no additional complaints, except as documented Patient History Medical History Delivery with history of Ulcer Social History Smoking Status: Never smoker Smoking Status: Never smoker alcohol intake frequency: 0-2 drinks per day Substance Use Type: does not use Exam Initial Vital Signs Initial Vital Signs: Vital Signs Temperature 98.4 F 04/17/21 23:19 Pulse Rate 79 04/17/21 23:19 Respiratory Rate 16 04/17/21 23:19 Blood Pressure 155/89 H 04/17/21 23:19 Pulse Oximetry 100 04/17/21 23:19 Const General: cooperative and healthy appearing [facility] Head: normal to inspection and normocephalic Resp Effort & Inspection: normal respiratory effort Auscultation: clear to auscultation bilaterally Cardio Rate: regular rate Rhythm: regular rhythm GI Inspection: normal to inspection Palpation: soft Skin Lesions: no lesions Neuro General: patient alert, patient awake, patient oriented x3 and moves all extremities Extrem General: normal to inspection and capillary refill normal Psych Appearance: grossly normal and well kempt Course Orders Ordered: Discontinued Medications Al Hydrox/Mg Hydrox/Simethicone 20 ml/ Lidocaine HCl 15 ml 0 ml PO NOW ONE Stop: 04/17/21 23:40 Last Admin: 04/17/21 23:46 Dose: 35 ml Documented by: CHARBEL Vital Signs Vital signs: Vital Signs - 8 hr 04/17/21 23:19 04/18/21 00:18 Temperature 98.4 F Pulse Rate 79 76 Respiratory Rate 16 18 Blood Pressure 155/89 H 157/82 H Pulse Oximetry 100 100 Medical Decision Making MDM Narrative Medical decision making narrative: I do have low suspicion for ACS given her presentation. She did feel somewhat better after the GI cocktail. It appears she cannot tolerate the PP eyes because they make her nauseous. Will send home with Carafate. Will hold on further workup for now. Instructed her she needed to contact her primary doctor to discuss further workup of her symptoms. She was given return precautions. She expressed understanding and agreement. Discharge Plan Departure Patient Disposition: Home Clinical Impression: Abdominal pain Instructions: DI for Gastroesophageal Reflux Disease (GERD) Activity Restrictions/Additional Instructions: I recommend that you start taking the medicine that you were given a prescription for this evening as directed. Contact your primary doctor for a follow-up. Return to the emergency department for any new or worsening symptoms Prescriptions: New sucralfate [Carafate] 1 gram tablet 1 g PO QACHS Qty: 60 RF: 0 sucralfate [Carafate] 1 gram tablet 1 g PO QACHS Qty: 60 RF: 0 No Action pantoprazole [Protonix] 40 mg tablet,delayed release (DR/EC) 40 mg PO DAILY Qty: 30 RF: 0 ondansetron 4 mg tablet,disintegrating 4 mg PO TID-QID PRN (Reason: nausea and vomiting) Qty: 10 RF: 0 omeprazole 40 mg capsule,delayed release(DR/EC) 40 mg PO DAILY Qty: 30 RF: 0
[2021-04-17] MEDS: MAG HYDROX/ALUMINUM/SIMETH SUS 20 ML, LIDOCAINE VISCOUS 2% 15 ML PO (23:46)
[2021-04-18 00:18] VITALS: BP 157/82; PULSE 76; RESP 18; O2SAT 100
== END 2021-04-18 00:19 | disposition home or self-care (01) ==
PROVIDERS: Emergency Provider Emergency Medicine
DX: R10.13 Epigastric pain (principal)
CPT/HCPCS: 99283